=== PATIENT | female | born 1990 | race Caucasian/White ===

== ENCOUNTER → 2017-09-24 20:50 | Outpatient (REF) | payer OTHER, SELFPAY | LOC: LAB 20:50 ==

== ENCOUNTER → 2018-02-15 14:19 | Outpatient (CLI) | payer OTHER, SELFPAY ==
--- NOTE | 2018-02-15 14:21 | US_ITS ---
US OB transvaginal HISTORY: ITS.REASON: US OB Dates ORDERING PHYSICIAN: Mark Moy MD PATIENT AGE: 27 years COMPARISON: None FINDINGS: An intrauterine gestational sac is present with a pole with a crown-rump length of 1.34cm correlating to gestational age of 7w5d. heart tones are present with an FHR of 178 bpm's. Yolk sac is noted. The amnion and chorion have not yet fused. Adnexa: Unremarkable. IMPRESSION: Live intrauterine gestation at 7 weeks 5 days as described above. Estimated due date by ultrasound is 09/29/2018
== END ==
PROVIDERS: Family Provider Family Medicine; PCP Physician Assistant; Visit Provider Nurse Practitioner Obstetrics & Gynecology
DX: O26.841 Uterine size-date discrepancy, first trimester (principal)
CPT/HCPCS: 76817

== ENCOUNTER → 2019-01-30 14:10 | Outpatient (CLI) | payer OTHER, SELFPAY ==
[2019-01-30 14:37] LABS: Basophils % 0.4 % (0.1-2.0); Eosinophils # 0.1 K/mm3 (0.0-0.4); Eosinophils % 1.6 % (0.1-12.0); Hematocrit 38.1 % (37.0-47.0); Hemoglobin 12.3 g/dL (12.2-16.2); Lymphocytes % 30.3 % (10-50); Mean Corpuscular HGB Conc 32.2 g/dL (31.8-35.4); Mean Corpuscular Volume 96.1 fl (81-99); Mean Platelet Volume 7.3 fl (7.4-10.4); Monocytes # 0.4 K/mm3 (0.1-1.0); Monocytes % 6.3 % (1.7-9.3); Neutrophils % 61.4 % (37.0-80.0); Platelet Count 297 K/mm3 (142-424); Red Blood Count 3.97 M/mm3 (4.20-5.40); White Blood Count 6.5 K/mm3 (4.8-10.8)
[2019-01-30 14:58] LABS: Alanine Aminotransferase 18 U/L (12-78); Albumin Level 3.7 gm/dL (3.4-5.0); Albumin/Globulin Ratio 1.3 (1.1-1.8); Alkaline Phosphatase 42 U/L (46-116); Anion Gap 9.8 mEq/L (5-15); Aspartate Amino Transferase 16 U/L (15-37); Bilirubin,Total 0.3 mg/dL (0.2-1.0); Blood Urea Nitrogen 21 mg/dL (7-18); Calcium 8.8 mg/dL (8.5-10.1); Carbon Dioxide 26 mmol/L (21.0-32.0); Chloride 105 mmol/L (98-107); Chol/HDL Ratio 1.7 (1-3.5); Cholesterol 131 mg/dL (140-200); Creatinine,Serum 0.75 mg/dL (0.55-1.02); Estimated Glomerular Filt Rate 91 ml/min (>60); GFR (African American) 110 ML/MIN (>60); Globulin 2.9 gm/dl (1.3-3.2); Glucose 73 mg/dL (74-106); HDL Cholesterol 77 mg/dL (29-89); LDL Cholesterol 48 mg/dL (0-130); Potassium 3.8 mmoL/L (3.5-5.1); Sodium 137 mmol/L (136-145); T4 (Thyroxine) 7.1 ug/dl (4.7-13.3); Thyroid Stimulating Hormone 1.83 uIU/ml (0.358-3.740); Total Protein,Serum 6.6 gm/dL (6.4-8.2); Triglycerides 30 mg/dL (30-200); VLDL Cholesterol 6 mg/dL (0-40)
[2019-01-30 17:28] LABS: HCG Qualitative, Serum Negative (Negative)
== END ==
PROVIDERS: Visit Provider Physician Assistant
DX: R11.0 Nausea (principal)
CPT/HCPCS: 80053; 80061; 84436; 84443; 84703; 85025

== ENCOUNTER → 2019-02-07 13:38 | Outpatient (CLI) | payer OTHER, SELFPAY ==
--- NOTE | 2019-02-07 13:40 | US_ITS ---
PROCEDURE: US TRANSVAGINAL CLINICAL INDICATION: RLQ Pain COMPARISON: OBTV US OB transvaginal from 02/15/2018 TECHNIQUE: FINDINGS: UTERUS: The uterus measures 9.4 x 4.3 x 6 cm. Combined endometrial thickness is 9 mm. The vessels within the myometrium are somewhat prominent which is of questionable clinical significance. RIGHT OVARY: Measures 4 x 2 x 3 cm. There is a 2 cm right ovarian cyst LEFT OVARY: Measures 3 x 1.5 x 3 cm with a 1 cm cyst OTHER FINDINGS: Small amount of fluid in the cul-de-sac. There is bilateral ovarian blood flow IMPRESSION: 2 cm right ovarian cyst with small amount of fluid in the cul-de-sac otherwise negative pelvic ultrasound Dictated by: Bill Miguel MD 02/07/2019 17:11 Signed by: <Electronically signed by Bill Miguel MD in [facility]> 02/07/2019 17:11
== END ==
PROVIDERS: PCP Physician Assistant; Visit Provider Physician Assistant
DX: R10.31 Right lower quadrant pain (principal)
CPT/HCPCS: 76830

== ENCOUNTER → 2019-03-24 17:14 | Outpatient (CLI) | payer OTHER, SELFPAY ==
[2019-03-24 17:42] LABS: Basophils # 0.1 K/mm3 (0-0.2); Basophils % 0.7 % (0.1-2.0); Eosinophils # 0.1 K/mm3 (0.0-0.4); Eosinophils % 1.4 % (0.1-12.0); Hematocrit 39.9 % (37.0-47.0); Hemoglobin 12.1 g/dL (12.2-16.2); Lymphocytes # 2.8 K/mm3 (0.7-4.5); Mean Corpuscular HGB Conc 30.3 g/dL (31.8-35.4); Mean Corpuscular Hemoglobin 29.3 pg (27.0-31.2); Mean Corpuscular Volume 96.6 fl (81-99); Mean Platelet Volume 7.9 fl (7.4-10.4); Monocytes # 0.6 K/mm3 (0.1-1.0); Monocytes % 6.9 % (1.7-9.3); Neutrophils # 5.2 K/mm3 (1.8-7.8); Platelet Count 332 K/mm3 (142-424); Red Blood Count 4.13 M/mm3 (4.20-5.40); Red Cell Distribution Width 12.8 % (11.5-17.5); White Blood Count 8.8 K/mm3 (4.8-10.8)
[2019-03-24 18:36] LABS: Alanine Aminotransferase 16 U/L (12-78); Albumin Level 3.6 gm/dL (3.4-5.0); Albumin/Globulin Ratio 1.1 (1.1-1.8); Alkaline Phosphatase 43 U/L (46-116); Amylase 47 U/L (25-115); Anion Gap 14.9 mEq/L (5-15); Aspartate Amino Transferase 15 U/L (15-37); Bilirubin,Total 0.4 mg/dL (0.2-1.0); Blood Urea Nitrogen 23 mg/dL (7-18); Calcium 8.7 mg/dL (8.5-10.1); Carbon Dioxide 27 mmol/L (21.0-32.0); Chloride 103 mmol/L (98-107); Creatinine,Serum 0.94 mg/dL (0.55-1.02); Estimated Glomerular Filt Rate 70 ml/min (>60); GFR (African American) 85 ML/MIN (>60); Globulin 3.2 gm/dl (1.3-3.2); Glucose 93 mg/dL (74-106); Lipase 163 u/L (73-393); Potassium 3.9 mmoL/L (3.5-5.1); Sodium 141 mmol/L (136-145); Total Protein,Serum 6.8 gm/dL (6.4-8.2)
== END ==
PROVIDERS: Visit Provider Physician Assistant
DX: R10.13 Epigastric pain (principal)
CPT/HCPCS: 80053; 82150; 83690; 85025

== ENCOUNTER → 2019-03-27 08:17 | Outpatient (CLI) | payer OTHER, SELFPAY ==
--- NOTE | 2019-03-27 08:19 | US_ITS ---
PROCEDURE: US ABDOMEN LIMITED CLINICAL INDICATION: Epigastric pain, nausea Nausea, upper abdominal pain COMPARISON: No exams were available for comparison FINDINGS: PANCREAS: Unremarkable. No obvious mass or abnormal fluid collection. No ductal dilatation LIVER: No focal liver lesions demonstrated. Homogeneous echogenicity. No intrahepatic biliary ductal dilatation evident. There is appropriate direction of blood flow within a non dilated portal vein RIGHT KIDNEY: Unremarkable. Normal size and echogenicity. No hydronephrosis GALLBLADDER: No gallstones, gallbladder wall thickening, pericholecystic fluid, or biliary dilatation. IMPRESSION: Unremarkable limited abdominal ultrasound as detailed above disc Dictated by: Bill Miguel MD 03/27/2019 18:18 Electronically signed by Bill Miguel MD in [facility] 03/27/2019 18:18
== END ==
PROVIDERS: PCP Physician Assistant; Visit Provider Physician Assistant
DX: R10.13 Epigastric pain (principal)
CPT/HCPCS: 76705

== ENCOUNTER → 2019-04-25 15:23 | Outpatient (CLI) | payer OTHER, SELFPAY ==
[2019-04-25 18:52] LABS: Hemoglobin A1C 5.5 % (0.0-7.0)
== END ==
PROVIDERS: Visit Provider Nurse Practitioner Family
DX: R81 Glycosuria (principal)
CPT/HCPCS: 36415; 83036

== ENCOUNTER → 2019-06-27 11:19 | Outpatient (CLI) | payer MEDICAID, SELFPAY ==
[2019-06-27 11:40] LABS: Basophils % 0.8 % (0.1-2.0); Eosinophils # 0.1 K/mm3 (0.0-0.4); Eosinophils % 1.6 % (0.1-12.0); Hematocrit 41.6 % (37.0-47.0); Hemoglobin 13.3 g/dL (12.2-16.2); Lymphocytes # 2.4 K/mm3 (0.7-4.5); Lymphocytes % 44.2 % (10-50); Mean Corpuscular Hemoglobin 29.7 pg (27.0-31.2); Mean Corpuscular Volume 92.7 fl (81-99); Mean Platelet Volume 7.3 fl (7.4-10.4); Monocytes # 0.4 K/mm3 (0.1-1.0); Monocytes % 8.1 % (1.7-9.3); Neutrophils # 2.4 K/mm3 (1.8-7.8); Neutrophils % 45.4 % (37.0-80.0); Platelet Count 332 K/mm3 (142-424); Red Blood Count 4.48 M/mm3 (4.20-5.40); Red Cell Distribution Width 12.9 % (11.5-17.5); White Blood Count 5.4 K/mm3 (4.8-10.8)
[2019-06-28 11:05] LABS: HIV Screen 4th Generation wRfx Non Reactive (Non Reactive); Hepatitis B Surface Antigen Negative (Negative); Hepatitis C Antibody <0.1 s/co ratio (0.0-0.9); Rubella Antibodies, IgG 1.55 index (Immune >0.99)
[2019-06-28 12:22] LABS: Rapid Plasma Reagin Ab Titer Non Reactive (NonRea<1:1)
== END ==
PROVIDERS: Visit Provider Nurse Practitioner Obstetrics & Gynecology
DX: Z34.90 Encounter for supervision of normal pregnancy, unspecified, unspecified trimester (principal)
CPT/HCPCS: 36415; 85025; 86592; 86703; 86762; 86850; 87340; 87380; G0432

== ENCOUNTER → 2019-07-03 13:45 | Outpatient (CLI) | payer MEDICAID, SELFPAY ==
--- NOTE | 2019-07-03 13:45 | US_ITS ---
PROCEDURE: US OB TRANSVAGINAL CLINICAL INDICATION: US OB Dates COMPARISON: OBTV US OB transvaginal from 02/15/2018 FINDINGS: An intrauterine gestational sac is present with a yolk sac identified 0.35 centimeters with no pole. An early intrauterine gestation is suspected. Follow-up will be required in attempt to confirm viability. Right ovary measures 4.7 x 2.9 x 3.6 centimeters and contains a 1.8 by 2.1 by 2.1 centimeter cyst possibly corpus luteum cyst. Left ovary measures 3.5 x 1.9 x 1.6 centimeters and has a normal appearance. No abnormal adnexal mass is apparent. By report gestational age based on last menstrual period would be 6 weeks 1 day and ROBBIE would be 02/25/2020. IMPRESSION: An intrauterine gestational sac with yolk sac but no pole is identified suggesting early intrauterine gestation. Follow-up and correlation with beta hCG values is recommended. Dictated by: Rainer Reese 07/03/2019 16:22 Electronically signed by Rainer Reese in [facility] 07/03/2019 16:22
== END ==
PROVIDERS: PCP Physician Assistant; Visit Provider Nurse Practitioner Obstetrics & Gynecology
DX: O26.841 Uterine size-date discrepancy, first trimester (principal)
CPT/HCPCS: 76817

== ENCOUNTER → 2019-07-11 13:05 | Outpatient (CLI) | payer MEDICAID, SELFPAY ==
--- NOTE | 2019-07-11 13:05 | US_ITS ---
PROCEDURE: US OB <= 14 WEEKS FETUS CLINICAL INDICATION: for dates over 12 weeks COMPARISON: US OB TRANSVAGINAL from 07/03/2019 FINDINGS: An intrauterine gestational sac is present with a pole with a crown-rump length of 0.49cm correlating to gestational age of 6weeks 2days. heart tones are present with an FHR of 124bpm. Yolk sac is noted. There is a 2 cm right corpus luteum cyst IMPRESSION: Live IUP at 6 weeks 2 days Estimated due date by Ultrasound is 03/03/2020 Dictated by: Bill Miguel MD 07/11/2019 18:09 Electronically signed by Bill Miguel MD in [facility] 07/11/2019 18:09
== END ==
PROVIDERS: PCP Physician Assistant; Visit Provider Nurse Practitioner Obstetrics & Gynecology
DX: Z34.90 Encounter for supervision of normal pregnancy, unspecified, unspecified trimester (principal)
CPT/HCPCS: 76801

== ENCOUNTER → 2019-10-08 12:41 | Outpatient (CLI) | payer MEDICAID, SELFPAY ==
[2019-10-10 02:44] LABS: AFP Value 61.2 ng/mL (.); DIA MoM 0.71 (.); DIA Value 130.16 pg/mL (.); DSR (Second Trimester) 1 IN 10000 (.); Insulin Dep Diabetes No (.); Maternal Age At EDD 31.3 yr (.); OSBR Risk 1 IN 6301 (.); Results Report (.); hCG MoM 0.85 (.); uE3 MoM 1.31 (.)
[2019-10-10 09:24] LABS: Gestat. Age Based On EDD (.)
== END ==
PROVIDERS: Visit Provider Nurse Practitioner Obstetrics & Gynecology
DX: Z34.90 Encounter for supervision of normal pregnancy, unspecified, unspecified trimester (principal)
CPT/HCPCS: 36415; 82106

== ENCOUNTER → 2019-10-16 12:59 | Outpatient (CLI) | payer MEDICAID, SELFPAY ==
--- NOTE | 2019-10-16 12:59 | US_ITS ---
PROCEDURE: US OB /MATERNAL DETAIL CLINICAL INDICATION: 20 wk gestation of Anatomy exam COMPARISON: US OB <= 14 WEEKS FETUS from 07/11/2019 FINDINGS: There is a single live fetus present in breech presentation. The cervix is closed and measures 4 cm transabdominal. The placenta is posterior and grade 1. There is average appearing amount of amniotic fluid. The Complete survey performed and was unremarkable on the submitted images as in PACS. No discrete anomalies identified on survey imaging by technologist. Active fetus. Three-vessel cord with satisfactory umbilical cord insertion. 4- chamber heart noted. Survey of brain & ventricles Unremarkable. Face and neck survey unremarkable. Diaphragm and chest views unremarkable. Abdomen: Both kidneys noted and unremarkable. Stomach noted and satisfactory. Spine: Survey of the spine satisfactory with no anomalies identified nor imaged. Both arms and legs noted. Amniotic Fluid: Adequate. Maternal adnexa: No significant findings. Measurements: Average ultrasound age 20weeks 3days. Gestational Age 20 weeks 1 day Estimated due date by ultrasound age 0903/01/2020. Estimated weight 352g BPD = 20weeks 5days OFD = 20 weeks 5 days HC = 19weeks 6days AC = 20weeks 5days FL = 20weeks 2days Growth Percentile= 61% Heart Rate = 149bpm Cerebellum = 20weeks 5days Humerus = 20weeks 5days HC/AC is 1.11 CI is 0.79 FL/BPD is 0.68 FL/AC is 0.21 IMPRESSION: The live intrauterine gestation in breech presentation with an average ultrasound age 20 weeks 3 days. All parameters correlate with no obvious anomalies. Please see above for detail Dictated by: Bill Miguel MD 10/16/2019 14:45 Electronically signed by Bill Miguel MD in [facility] 10/16/2019 14:45
== END ==
PROVIDERS: PCP Physician Assistant; Visit Provider Nurse Practitioner Obstetrics & Gynecology
DX: Z34.90 Encounter for supervision of normal pregnancy, unspecified, unspecified trimester (principal)
CPT/HCPCS: 76811

== ENCOUNTER → 2019-11-18 08:38 | Outpatient (CLI) | payer MEDICAID, SELFPAY ==
--- NOTE | 2019-11-18 08:39 | US_ITS ---
PROCEDURE: US GALLBLADDER CLINICAL INDICATION: pt. is and is having RUQ pain COMPARISON: No exams were available for comparison FINDINGS: Pancreas: Unremarkable/ Liver: Unremarkable. There is appropriate direction of blood flow within a non dilated portal vein. Right kidney: The right kidney measures 10.6 x 5 point by 5.2 cm and appears sonographically normal. Gallbladder: The gallbladder is normal in size. There is a tiny amount of biliary sludge layering along the dependent wall but no definite gallstones are seen. The common bile duct is normal in caliber. There is no gallbladder wall thickening. IMPRESSION: Small amount of biliary sludge otherwise unremarkable study Dictated by: Dr. Buddy Oscar MD 11/18/2019 09:[address] Buddy Oscar MD in [place] 11/18/2019 09:20
== END ==
PROVIDERS: PCP Physician Assistant; Visit Provider Nurse Practitioner Obstetrics & Gynecology
DX: R10.11 Right upper quadrant pain (principal); Z34.90 Encounter for supervision of normal pregnancy, unspecified, unspecified trimester
CPT/HCPCS: 76705

== ENCOUNTER → 2019-12-05 08:12 | Outpatient (CLI) | payer MEDICAID, SELFPAY ==
[2019-12-05 09:42] LABS: Glucose,Fasting 87 mg/dl (74-100)
[2019-12-05 10:20] LABS: Glucose 1 Hour 133 mg/dL (74-100)
== END ==
PROVIDERS: Visit Provider Nurse Practitioner Obstetrics & Gynecology
DX: Z34.90 Encounter for supervision of normal pregnancy, unspecified, unspecified trimester (principal)
CPT/HCPCS: 36415; 82951

== ENCOUNTER → 2020-01-21 12:02 | Outpatient (CLI) | payer MEDICAID, SELFPAY ==
--- NOTE | 2020-01-21 12:06 | XR_ITS ---
PROCEDURE: XR ANKLE WT BEARING RT MIN 3V CLINICAL INDICATION: pain, injury Swelling and bruising COMPARISON: No exams were available for comparison FINDINGS: No fracture or dislocation. No lytic or blastic change. There is an accessory center of ossification at the tip of the lateral malleolus. A small anchor screw is present at the medial aspect of the midfoot. There is mild soft tissue swelling laterally. IMPRESSION: No acute findings. Dictated b Bill Miguel MD 01/21/2020 13:37 Bill Miguel MD in [facility] 01/21/2020 13:37
== END ==
PROVIDERS: PCP Physician Assistant; Visit Provider Podiatrist
DX: M25.571 Pain in right ankle and joints of right foot (principal)
CPT/HCPCS: 73610

== ENCOUNTER → 2020-02-04 17:11 | Outpatient (CLI) | payer MEDICAID, SELFPAY | PROVIDERS: Visit Provider Nurse Practitioner Obstetrics & Gynecology | DX: Z34.90 Encounter for supervision of normal pregnancy, unspecified, unspecified trimester (principal) | CPT/HCPCS: 86403 ==

== ENCOUNTER 2020-02-26 13:59 | Inpatient (IN) | payer MEDICAID, SELFPAY ==
[2020-02-26] VITALS (8 sets, daily range): BP systolic 98–133; BP diastolic 62–91; PULSE 70–89; RESP 12–20; TEMP 36.4–36.6; O2SAT 97–100; BMI 30.2
[2020-02-26 12:12] LABS: Microscopic, Urine URINE MICROSCOPIC (MICROSCOPIC)
[2020-02-26 12:13] LABS: Appearance,Urine CLEAR (Clear); Bilirubin,Urine Negative (Negative); Blood, Urine Negative (Negative); Color,Urine YELLOW (Yellow); Glucose,Urine (UA) Negative (Negative); Ketones,Urine Negative (Negative); Leukocyte Esterase,Urine Negative (Negative); Nitrate,Urine Negative (Negative); PH,Urine 6.5 (5.0-8.5); Protein,Urine Negative (Negative); Urobilinogen,Urine 0.2 EU/dl (0.2)
[2020-02-26 12:21] LABS: Bacteria,Urine 2+ /lpf
[2020-02-26 12:26] LABS: Amphetamine/Metha Screen,Urine Negative ng/ml (<1000); Barbiturates Screen,Urine Negative ng/ml (<200)
[2020-02-26 12:27] LABS: Benzodiazepines Screen,Urine Negative ng/ml (<200)
[2020-02-26 12:28] LABS: Cannabinoid Screen,Urine Negative ng/ml (<50); Cocaine Screen,Urine Negative ng/ml (<300)
[2020-02-26 12:29] LABS: Methadone Screen,Urine Negative ng/ml (<300)
[2020-02-26 12:30] LABS: Opiate Screen,Urine Negative ng/ml (<300); Phencyclidine Screen,Urine Negative ng/ml (<25)
[2020-02-26 12:48] LABS: Fetal Membrane Rupture (Rapid) Negative (Negative)
[2020-02-26 14:10] LABS: Basophils % 0.3 % (0.1-2.0); Eosinophils # 0.2 K/mm3 (0.0-0.4); Eosinophils % 1.4 % (0.1-12.0); Hematocrit 38.7 % (37.0-47.0); Hemoglobin 12.9 g/dL (12.2-16.2); Lymphocytes # 2.2 K/mm3 (0.7-4.5); Lymphocytes % 18.6 % (10-50); Mean Corpuscular HGB Conc 33.4 g/dL (31.8-35.4); Mean Corpuscular Hemoglobin 31.9 pg (27.0-31.2); Mean Corpuscular Volume 95.6 fl (81-99); Monocytes # 0.8 K/mm3 (0.1-1.0); Monocytes % 6.9 % (1.7-9.3); Neutrophils # 8.6 K/mm3 (1.8-7.8); Neutrophils % 72.8 % (37.0-80.0); Platelet Count 290 K/mm3 (142-424); Red Blood Count 4.05 M/mm3 (4.20-5.40); Red Cell Distribution Width 12.3 % (11.5-17.5); White Blood Count 11.9 K/mm3 (4.8-10.8)
[2020-02-26 14:18] LABS: Chloride 108 mmol/L (98-107); Potassium 3.9 mmoL/L (3.5-5.1); Sodium 136 mmol/L (136-145)
[2020-02-26 14:21] LABS: Blood Urea Nitrogen 12 mg/dl (7-17); Creatinine Clearance Estimated 200 mL/min (50-200); Estimated Glomerular Filt Rate 144 ml/min (>60); GFR (African American) 174 ML/MIN (>60)
[2020-02-26 14:22] LABS: Anion Gap 10.9 mEq/L (5-15); Calcium 8.8 mg/dl (8.4-10.2); Carbon Dioxide 21 mmol/L (22.0-30.0); Glucose 87 mg/dl (74-100)
[2020-02-26 14:47] LABS: Coronavirus 19 IgG Antibody Negative (Negative); Coronavirus 19 IgM Antibody Negative (Negative)
--- NOTE | 2020-02-26 16:17 | P.PN_ITS ---
[facility] Anesthesia Checklist - Structural Data Admitted From: Inpatient Planned Operative Procedure/s: c/section Consent for Planned Operative Procedure(s) Verified: Yes - Airway Assessment C-Spine Mobility Assessed: Yes TMJ Mobility Assessed: Yes Dentition: Good Dentition - Neurological Assessment Level of Consciousness: Awake, Alert, Appropriate - Anesthesia Plan Anesthesia Risk discussed: Yes Anesthesia Plan: Verified ASA Class: II Anesthesia Type: Spinal [facility] History I have reviewed the patient's past medical history: Yes Medical History: Reports:: Migraine *Have you ever received a pneumonia vaccine?: No *Have you received a flu vaccine this season?: No Other Medical History: Reports: Other Anesthesia experience/problems:: none Other Surgeries: Yes: , EGD, Other Amputation: No Fractures: No - *Social History Smoking Status: Never smoker Alcohol Intake: current Alcohol Intake Frequency:: holidays/special occasions only Substance Use Type: denies use *Occupational Status:: employed Housing: house Household Members: family *Travel in the last 8 weeks: None Family Hx:: Diabetes, Cancer 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
--- NOTE | 2020-02-26 16:18 | P.PN_ITS ---
[facility] [place] Anesthesia Record Part I Intake, IV Amount: 1,500 Estimated blood loss (mL): 700 Urine output (mL): 450 Blood Pressure: 98/71 SaO2: 97 Pulse Rate: 70 Respiratory Rate: 12 Temperature: 97.6 F Patient is:: Awake, Stable Stable to PACU at:: 16:15
--- NOTE | 2020-02-26 17:06 | PC.NURSE ---
1630-pt eating ice chips w/out difficulty 1644-detailed report called to Shelly,RN 1648-pt transported to OB room 278 via hospital bed w/michelle rails up and left in care of JUANA Bravo w/bed locked in lowest position, vss, family at bedside, pt stable
--- NOTE | 2020-02-26 17:13 | SUR.OPER ---
1535-viable infant male born at this time
--- NOTE | 2020-02-26 17:22 | HMH.OPNOTE ---
Date of procedure: 02/26/20 Pre-op Diagnosis:: 1. 39 2/7 wks 2. Previous C Section Post-op Diagnosis:: Same Procedure performed:: Repeat Low Transverse C Section Surgeon:: Kelli Woodard MD Well Servicing Rig Operator(s):: Yun Duenas CAREER SERVICES ASSISTANT:: Odin Calhoun Anesthesia: spinal Estimated blood loss (mL): 700 Operative findings:: Grossly normal uterus, fallopian tubes and ovaries Vigorous liveborn male infant, vertex presentation Operative note:: The patient was taken to the OR and spinal was administered without difficulty. She was prepped and draped in normal sterile fashion. A pfannenstiel skin incision was made with the scalpel and carried down to the fascia. The fascia was incised in the midline and sharply dissected off the rectus muscles. The muscles were in the midline and the peritoneum was entered sharply and extended bluntly. The Vignesh-O self retaining retractor was placed in the abdomen and a bladder flap was created. The uterus was incised in the lower uterine segment in a transverse fashion and extended bluntly. Amniotomy was performed and clear fluid noted. The infant was delivered in controlled fashion, without complication or shoulder dystocia. The infant was vigorous at and handed to awaiting pediatricians for evaluation after cord clamped and cut. Cord blood was collected and a cord segment was preserved. The placenta was manually extracted and noted to be intact. The uterus was repaired with 0-vicryl in a running/locked fashion. The peritoneum was closed with 2-0 vicryl in a running fashion. The fascia was closed with #1 vicryl in a running fashion. The subcutaneous fat was closed with 2-0 vicryl in an interrupted fashion. The skin was closed with santana. The patient tolerated the procedure well. Sponge, lap, needle and instrument counts were correct x 2. She was taken to PACU awake and in stable condition. Condition: stable Disposition: PACU Complications:: none
[2020-02-26 17:24] LABS: Microscopic,Cath URINE MICROSCOPIC (MICROSCOPIC)
[2020-02-26 17:25] LABS: Appearance,Urine/Cath CLEAR (Clear); Bilirubin,Cath Negative (Negative); Blood, Urine/Cath Negative (Negative); Color,Urine/Cath YELLOW (Yellow); Glucose,Urine/Cath (UA) Negative (Negative); Ketones,Urine/Cath Negative (Negative); Leukocyte Esterase,Cath Negative (Negative); Nitrate,Cath Negative (Negative); PH,Urine/Cath 7.5 (5.0-8.5); Protein,Urine/Cath Negative (Negative); Specific Gravity, Urine/Cath <= 1.005 (1.005-1.030); Urobilinogen,Cath 0.2 EU/dl (0.2)
[2020-02-26 17:33] LABS: Renal Epithelial Cells,Ur/Cath Occasional #/lpf (0); Squamous Epithelial Ur./Cath Occasional #/hpf (0-5)
[2020-02-27 06:56] LABS: Hematocrit 33.6 % (37.0-47.0); Hemoglobin 11.7 g/dL (12.2-16.2)
[2020-02-27 08:00] VITALS: BP 111/62; PULSE 77; RESP 20; TEMP 36.8; O2SAT 98
--- NOTE | 2020-02-27 08:52 | HMH.ACPN2 ---
Internal Medicine - PN: Subj *Date: 02/27/20 *Time: 08:52 Interval history: She is doing well this morning. She is eating and drinking and ambulating. She is bottlefeeding. Her lochia is normal. Her pain is well controlled. Her incision is clean and dry. Exam Vital signs and Labs for Last 24 Hours: Temp Pulse Resp BP Pulse Ox 98.3 F 77 20 111/62 98 02/27/20 08:00 02/27/20 08:00 02/27/20 08:00 02/27/20 08:00 02/27/20 08:00 Laboratory Results - last 24 hr 02/26/20 11:56: Urine Color Yellow, Urine Appearance Clear, Urine pH 6.5, Ur Specific [place] 1.020, Urine Protein Negative, Urine Glucose (UA) Negative, Urine Ketones Negative, Urine Blood Negative, Urine Nitrate Negative, Urine Bilirubin Negative, Urine Urobilinogen 0.2, Ur Leukocyte Esterase Negative, Urine RBC 3-5, Urine WBC 5-10, Ur Squamous Epith Cells 10-20, Urine Bacteria 2+ 02/26/20 11:56: Urine Opiates Screen Negative, Urine Methadone Screen Negative, Ur Barbituates Screen Negative, Ur Phencyclidine Scrn Negative, Ur Amphetamines Screen Negative, U Benzodiazepines Scrn Negative, Urine Cocaine Screen Negative, U Marijuana (THC) Screen Negative 02/26/20 12:10: Membrane Rupture Negative 02/26/20 13:59: WBC 11.9 H, RBC 4.05 L, Hgb 12.9, Hct 38.7, MCV 95.6, MCH 31.9 H, MCHC 33.4, RDW 12.3, Plt Count 290, MPV 8.0, Neut % (Auto) 72.8, Lymph % (Auto) 18.6, [place] % (Auto) 6.9, Eos % (Auto) 1.4, Baso % (Auto) 0.3, Neut # (Auto) 8.6 H, Lymph # (Auto) 2.2, [place] # (Auto) 0.8, Eos # (Auto) 0.2, Baso # (Auto) 0.0 02/26/20 13:59: SARS-CoV-2 IgG Ab (Rapid) Negative, SARS-CoV-2 IgM Ab (Rapid) Negative 02/26/20 13:59: Blood Type B Positive, Antibody Screen Negative 02/26/20 13:59: Sodium 136, Potassium 3.9, Chloride 108 H, Carbon Dioxide 21 L, Anion Gap 10.9, BUN 12, Creatinine 0.50 L, Estimated Creat Clear 200, Estimated GFR 144, Est GFR ( Amer) 174, Glucose 87, Calcium 8.8 02/26/20 15:25: Urine Color Yellow, Urine Appearance Clear, Urine pH 7.5, Ur Specific [place] <= 1.005, Urine Protein Negative, Urine Glucose (UA) Negative, Urine Ketones Negative, Urine Blood Negative, Urine Nitrate Negative, Urine Bilirubin Negative, Urine Urobilinogen 0.2, Ur Leukocyte Esterase Negative, Urine RBC None, Urine WBC 3-5, Ur Squamous Epith Cells Occasional, Ur Renal Epithelial Cell Occasional, Urine Bacteria None 02/27/20 06:35: Hgb 11.7 L, Hct 33.6 L I & O for Last 24 hours: Intake & Output 02/24/20 02/25/20 02/26/20 02/27/20 11:59 11:59 11:59 11:59 Intake Total 1675 / 1675 Output Total 1000 / 1000 Balance 675 / 675 Weight 171 lb 171 lb Microbiology Reports for the Last 24 Hours: Microbiology 02/26/20 11:56 Urine,Clean Catch Urine Culture - Preliminary - Constitutional no acute distress - *Routine HEENT Exam Head: Present: normocephalic Eye: Present: EOMI, PERRL ENT: Present: mucous membranes moist Assessment and Plan (1) Previous section Current visit: Yes Status: Acute Category: Surgical Code(s): Z98.891 - History of uterine scar from previous surgery (2) delivery delivered Current visit: Yes Status: Acute Category: Medical Code(s): O82 - Encounter for delivery without indication - Assessment and plan all Dx Assessment and Plan for all problems:: She is doing well this morning. We will plan to send her home in 48 hours.
--- NOTE | 2020-02-27 08:56 | HMH.OBAPHP ---
OB - H&P: HPI Antepartum - History of Present Illness Chief complaint: Contractions, previous section, abnormal heart rate tracing History of present illness: She is a 29-year-old 3 para 1 aborta 1 who is had a previous section. She was scheduled next week for a repeat section and came in in active labor. Her cervix had changed and she was having a few mild decelerations. Since she was in active labor she was taken for a repeat lower segment transverse section. - History of Present Criteria for establishing EDC:: LMP confirmed by 1st trimester US care: good care Ultrasounds: normal 1st trimester US, normal mid trimester US Obstetrical complications: previous Medical complications: none - Labs Blood type: B (+) positive Rubella: immune RPR/VDRL: nonreactive GBS status: negative HBsAG: negative [facility] History I have reviewed the patient's past medical history: Yes Medical History: Reports:: Migraine *Have you ever received a pneumonia vaccine?: No *Have you received a flu vaccine this season?: No Other Medical History: Reports: Other Anesthesia experience/problems:: none Other Surgeries: Yes: , EGD, Other Amputation: No Fractures: No - *Social History Smoking Status: Never smoker Alcohol Intake: current Alcohol Intake Frequency:: holidays/special occasions only Substance Use Type: denies use *Occupational Status:: employed Housing: house Household Members: family *Travel in the last 8 weeks: None Family Hx:: Diabetes, Cancer 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 Para: 1 Review of Systems - Review of Systems Review of systems:: pertinent systems reviewed and negative unless documented below Meds Home Medications Medication Instructions Recorded Confirmed Type vitamin no.138-folic acid 1 tab PO DAILY 06/27/19 02/26/20 History 400 mcg-dha 25 mg chewable tablet RX: Ferrous Sulfate 325 mg PO DAILY 02/26/20 02/26/20 History RX: Promethazine HCl 12.5 mg PO Q6HP PRN 02/26/20 02/26/20 History Allergies Allergy/AdvReac Type Severity Reaction Status Date / Time apple Allergy Intermediate vomiting Verified 02/24/20 10:26 raspberry Allergy Intermediate swelling Verified 02/24/20 10:26 of tongue lips and throat Penicillins Allergy Unknown Rash Verified 02/24/20 10:26 OB - H&P: Exam - Physical Exam Vital signs: Temp Pulse Resp BP Pulse Ox 98.3 F 77 20 111/62 98 02/27/20 08:00 02/27/20 08:00 02/27/20 08:00 02/27/20 08:00 02/27/20 08:00 - Constitutional no acute distress - Routine HEENT Exam Head: Present: normocephalic Eye: Present: EOMI, PERRL ENT: Present: mucous membranes moist - Routine Neck Exam Present: supple, full ROM - Routine Respiratory Exam Absent: accessory muscle use (good air entry bilaterally), respiratory distress, wheezes, crackles - Routine Cardiovascular Exam Present: RRR. Absent: murmur - Routine Abdominal Exam Present: soft, normoactive bowel sounds. Absent: tenderness, distended, guarding - Routine Rectal Exam Patient deferred: visual exam, digital exam - Routine Exam Patient deferred: external exam, groin exam, perineal exam - Routine Extremities Exam Present: full ROM. Absent: cyanosis, edema - Routine Skin Exam Present: intact. Absent: cyanosis - Routine Neurological Exam Present: alert, oriented X3 - Routine Psychiatric Exam Present: normal affect OB - Results - Labs Labs: Short CBC 02/26/20 02/27/20 Range/Units 13:59 06:35 WBC 11.9 H (4.8-10.8) K/mm3 Hgb 12.9 11.7 L (12.2-16.2) g/dL Hct 38.7 33.6 L (37.0-47.0) % Plt Count 290 (142-424) K/mm3 BMP 02/26/20 13:59 Sodium 136 Potassium 3.9 Chloride 108 H Carbon Dioxide 21 L BUN 12 Creatinine 0.50 L Glucose 87 Calcium 8.8 Urine 02/26/20 02/26/20 Range/Units 11:56 15:25 Urine Color Yellow
--- NOTE | 2020-02-27 11:25 | P.CONPHA_ITS ---
[facility] Pharmacy VTE Monitoring - Patient Demographics Admission date: 02/26/20 Report Date: 02/27/20 Time: 11:26 Allergies/Adverse Reactions: Patient Allergies apple Allergy (Intermediate, Verified 02/24/20 10:26) vomiting raspberry Allergy (Intermediate, Verified 02/24/20 10:26) swelling of tongue lips and throat Penicillins Allergy (Unknown, Verified 02/24/20 10:26) Rash Height: 1.6 m Weight: 77.564 kg Patient Problems: Current Active Problems Previous section (Acute) delivery delivered (Acute) - VTE Risk Labs: VTE Related Lab Results Hgb 11.7 g/dL (12.2-16.2) L 02/27/20 06:35 Hct 33.6 % (37.0-47.0) L 02/27/20 06:35 Plt Count 290 K/mm3 (142-424) 02/26/20 13:59 BUN 12 mg/dl (7-17) 02/26/20 13:59 Creatinine 0.50 mg/dl (0.52-1.04) L 02/26/20 13:59 Estimated Creat Clear 200 mL/min (50-200) 02/26/20 13:59 - Prophylaxis VTE Prophylaxis Ordered?: Yes Types of VTE Prophylaxis: IPCS Thigh High Location of Applied Device: Bilateral Lower Extremeties
--- NOTE | 2020-02-28 12:00 | HMH.ACPN2 ---
Internal Medicine - PN: Subj *Date: 02/28/20 *Time: 12:00 Interval history: She is doing well today. She is eating and drinking and ambulating. She is bottlefeeding. Her lochia is normal. Her incision is clean and dry. Exam Vital signs and Labs for Last 24 Hours: Temp Pulse Resp BP Pulse Ox 98.3 F 77 20 111/62 98 02/27/20 08:00 02/27/20 08:00 02/27/20 08:00 02/27/20 08:00 02/27/20 08:00 I & O for Last 24 hours: Intake & Output 02/26/20 02/27/20 02/28/20 02/29/20 11:59 11:59 11:59 11:59 Intake Total 1675 / 1675 Output Total 1000 / 1000 Balance 675 / 675 Weight 171 lb 171 lb - Constitutional no acute distress - *Routine HEENT Exam Head: Present: normocephalic Eye: Present: EOMI, PERRL ENT: Present: mucous membranes moist Assessment and Plan (1) Previous section Current visit: Yes Status: Acute Category: Surgical Code(s): Z98.891 - History of uterine scar from previous surgery (2) delivery delivered Current visit: Yes Status: Acute Category: Medical Code(s): O82 - Encounter for delivery without indication - Assessment and plan all Dx Assessment and Plan for all problems:: She is doing well. We will plan to send her home tomorrow.
[2020-02-28 16:00] VITALS: BP 124/73; RESP 20; TEMP 36.7
[2020-02-29 08:00] VITALS: BP 122/74; PULSE 79; RESP 17; TEMP 36.7; O2SAT 100
--- NOTE | 2020-02-29 10:00 | P.DS_ITS ---
General - General Admission date:: 02/26/20 Discharge date: 02/29/20 HPI - History of Present Illness History of present illness: She is a 29-year-old 3 now para 2 aborta 1 who was scheduled for a repeat section. She was 39 weeks gestational age. She came in active labor. As a result of that she was taken for repeat lower segment transverse section. Hospital Course Hospital Course: On February 26, 2020 she underwent a repeat lower segment transverse section. She delivered a liveborn male child at 3:35 PM. The baby weighed 8 pounds 11 ounces and was 20 inches long. He had Apgars of 7 at 1 minute and 10 at 5 minutes. She has done well postoperatively and has remained afebrile with her hospitalization. She is eating and drinking and ambulating. She is bottlefeeding. Her child protective investigator is Dr. Chun. She has be positive blood, she is rubella immune and was group B streptococcus negative. She is bottlefeeding. She is discharged home to follow-up with me in approximately 2 weeks time. She will continue with her vitamins and iron. She is had her santana removed and Steri-Strips applied. She was given a prescription for Percocet 5/325 number 30 tablets. She was given the usual instructions with respect to limiting her activity, driving and sexual activity. Her condition on discharge is stable and improved. Rhogam Administration: Not Indicated Objective Vital signs: Temp Pulse Resp BP Pulse Ox 98.1 F 79 17 122/74 100 02/29/20 08:00 02/29/20 08:00 02/29/20 08:00 02/29/20 08:00 02/29/20 08:00 no acute distress - *Routine HEENT Exam Head: Present: normocephalic Eye: Present: EOMI, PERRL ENT: Present: mucous membranes moist DS: Diagnosis - Discharge Diagnosis (1) Previous section Status: Acute (2) delivery delivered Status: Acute Discharge Plan - Patient Discharge Instructions ACTIVITY: No heavy lifting DIET: continue same diet Additional Instructions: NO HEAVY LIFTING OR STRENUOUS ACTIVITY NOTHING IN VAGINA FOR 6 WEEKS NO DRIVING WHILE TAKING PAIN MEDICATION FOLLOW-UP WITH DR. VILLEDA IN 2 WEEKS Patient Instructions: Depression, Hemorrhage, DI for , DI for Pre-eclampsia, DI for Surgical Site Infection, [facility] Post Discharge Instructions, Preventing the Spread of Coronavirus Discharge Instructions - Follow up Plan Disposition: Home, Self-Custodial Medications: Home Medications Medication Instructions Recorded Confirmed Type vitamin no.138-folic acid 1 tab PO DAILY 06/27/19 02/26/20 History 400 mcg-dha 25 mg chewable tablet Ferrous Sulfate 325 mg PO DAILY 02/26/20 02/26/20 History Promethazine HCl 12.5 mg PO Q6HP PRN 02/26/20 02/26/20 History Oxycodone HCl/Acetaminophen 1 tab PO Q6H PRN #30 tablet 02/29/20 Rx [Percocet 5/325mg tablet] Prescriptions/Medication Reconciliation: New Oxycodone HCl/Acetaminophen [Percocet 5/325mg tablet] 1 tab PO Q6H PRN #30 tablet PRN Reason: Severe Pain Continued vitamin no.138-folic acid 400 mcg-dha 25 mg chewable tablet 1 tab PO DAILY Promethazine HCl 12.5 mg PO Q6HP PRN PRN Reason: Nausea Ferrous Sulfate 325 mg PO DAILY - Problem Reconciliation Problems Reviewed?: Yes
== END 2020-02-29 10:35 | disposition home or self-care (01) | DRG 788 ==
LOC: OBOUT 14:00 → OB 14:01
PROVIDERS: Admitting Provider Obstetrics & Gynecology; PCP Physician Assistant; Visit Provider Nurse Practitioner Obstetrics & Gynecology
PROC: 10D00Z1 Extraction of Products of Conception, Low, Open Approach (ICD-10-PCS; CPT 59514; principal; 2020-02-26 15:00)
DX: O34.211 Maternal care for low transverse scar from previous cesarean delivery (principal); N85.8 Other specified noninflammatory disorders of uterus; Z3A.39 39 weeks gestation of pregnancy; Z37.0 Single live birth
CPT/HCPCS: 59514; 36415; 59025; 80048; 80305; 81001; 84112; 85014; 85018; 85025; 86328; 86850; 87086; 96360; 96361; J0595

== ENCOUNTER → 2020-10-18 14:02 | Outpatient (CLI) | payer MEDICAID, SELFPAY ==
[2020-10-18 16:07] LABS: HCG,Quantitative 98125 mIU/ml (0-5.42)
== END ==
PROVIDERS: Visit Provider Obstetrics & Gynecology
DX: Z34.90 Encounter for supervision of normal pregnancy, unspecified, unspecified trimester (principal)
CPT/HCPCS: 36415; 84702

== ENCOUNTER → 2020-10-20 11:47 | Outpatient (CLI) | payer MEDICAID, SELFPAY | PROVIDERS: Visit Provider Obstetrics & Gynecology | DX: Z34.90 Encounter for supervision of normal pregnancy, unspecified, unspecified trimester (principal) | CPT/HCPCS: 36415; 84702 ==

== ENCOUNTER → 2020-10-29 14:17 | Outpatient (CLI) | payer MEDICAID, SELFPAY ==
--- NOTE | 2020-10-29 14:17 | US_ITS ---
PROCEDURE: US OB <= 14 WEEKS FETUS CLINICAL INDICATION: dates Early Ob ultrasound for dates COMPARISON: US US OB /MATERNAL DETAIL from 10/16/2019 FINDINGS: An intrauterine gestational sac is present with a pole with a crown-rump length of 1.8 cm correlating to gestational age of 8 weeks 3 days. heart tones are present with an FHR of 170 BPM. Yolk sac is noted. Unremarkable adnexa IMPRESSION: Live IUP at 8 weeks 3 days Estimated due date by Ultrasound is 06/07/2021 Dictated by: Bill Miguel MD 10/30/2020 07:13 Bill Miguel MD in [place] 10/30/2020 07:13
== END ==
PROVIDERS: PCP Physician Assistant; Visit Provider Obstetrics & Gynecology
DX: Z34.90 Encounter for supervision of normal pregnancy, unspecified, unspecified trimester (principal)
CPT/HCPCS: 76801

== ENCOUNTER → 2020-11-02 08:57 | Outpatient (CLI) | payer MEDICAID, SELFPAY ==
[2020-11-05 20:24] LABS: Neisseria gonorrhoeae, NAA Negative (Negative)
== END ==
PROVIDERS: Visit Provider Obstetrics & Gynecology
DX: Z34.90 Encounter for supervision of normal pregnancy, unspecified, unspecified trimester (principal)
CPT/HCPCS: 87491; 87591

== ENCOUNTER → 2020-11-05 11:35 | Outpatient (CLI) | payer MEDICAID, SELFPAY ==
[2020-11-05 12:07] LABS: Basophils % 0.3 % (0.1-2.0); Eosinophils # 0.1 K/mm3 (0.0-0.4); Hematocrit 37.3 % (37.0-47.0); Hemoglobin 12.3 g/dL (12.2-16.2); Lymphocytes # 2.9 K/mm3 (0.7-4.5); Lymphocytes % 29.4 % (10-50); Mean Corpuscular Hemoglobin 30.2 pg (27.0-31.2); Mean Corpuscular Volume 91.6 fl (81-99); Mean Platelet Volume 7.2 fl (7.4-10.4); Monocytes # 0.6 K/mm3 (0.1-1.0); Monocytes % 5.7 % (1.7-9.3); Neutrophils # 6.2 K/mm3 (1.8-7.8); Neutrophils % 63.6 % (37.0-80.0); Platelet Count 315 K/mm3 (142-424); Red Blood Count 4.07 M/mm3 (4.20-5.40); Red Cell Distribution Width 12.3 % (11.5-17.5); White Blood Count 9.7 K/mm3 (4.8-10.8)
[2020-11-06 13:09] LABS: HIV Screen 4th Generation wRfx Non Reactive (Non Reactive); Hepatitis B Surface Antigen Negative (Negative); Hepatitis C Antibody <0.1 s/co ratio (0.0-0.9); Rapid Plasma Reagin Ab Titer Non Reactive (NonRea<1:1); Rubella Antibodies, IgG 1.27 index (Immune >0.99)
== END ==
PROVIDERS: Visit Provider Obstetrics & Gynecology
DX: Z34.90 Encounter for supervision of normal pregnancy, unspecified, unspecified trimester (principal)
CPT/HCPCS: 36415; 85025; 86592; 86703; 86762; 86850; 87340; 87380; G0432

== ENCOUNTER → 2021-01-24 14:33 | Outpatient (CLI) | payer MEDICAID, SELFPAY ==
--- NOTE | 2021-01-24 14:33 | US_ITS ---
PROCEDURE: US OB >= 14 WEEKS FETUS CLINICAL INDICATION: OB complete COMPARISON: US US OB <= 14 WEEKS FETUS from 10/29/2020 FINDINGS: There is a single live fetus present in cephalic presentation. heart and body motion noted. The placenta is anterior and grade 1. Complete survey performed and was unremarkable on the submitted images as in PACS. No discrete anomalies identified on survey imaging by technologist. Active fetus. Three-vessel cord with satisfactory umbilical cord insertion. 4- chamber heart noted. Survey of brain & ventricles Unremarkable. Face and neck survey unremarkable. Diaphragm and chest views unremarkable. Abdomen: Both kidneys noted and unremarkable. Stomach noted and satisfactory. Spine: Survey of the spine satisfactory with no anomalies identified nor imaged. Both arms and legs noted. Amniotic Fluid: Adequate. Maternal adnexa: No significant findings. Measurements: Average ultrasound age 21weeks. Gestational Age 21weeks Estimated due date by ultrasound age 1206/06/2021. Estimated weight 403g BPD = 20weeks 6days OFD = 20weeks 4days HC = 20weeks AC = 21weeks 3days FL = 21weeks 2days Growth Percentile= 43Percent% Heart Rate = 152bpm Cerebellum = 21weeks 1day Humerus = 21weeks 4days HC/AC is 1.06 CI is 0.81 FL/BPD is 0.73 FL/AC is 0.22 IMPRESSION: Live IUP in cephalic presentation with an average ultrasound age of 21 weeks 0 days. No obvious anomalies. Please see above for detail. Dictated by: Bill Miguel MD 01/24/2021 17:23 Bill Miguel MD in [place] 01/24/2021 17:23
== END ==
PROVIDERS: PCP Physician Assistant; Visit Provider Obstetrics & Gynecology
DX: Z34.90 Encounter for supervision of normal pregnancy, unspecified, unspecified trimester (principal)
CPT/HCPCS: 76805

== ENCOUNTER → 2021-02-26 07:14 | Outpatient (CLI) | payer MEDICAID, SELFPAY ==
[2021-02-26 07:31] LABS: Basophils % 0.3 % (0.1-2.0); Eosinophils # 0.2 K/mm3 (0.0-0.4); Eosinophils % 1.6 % (0.1-12.0); Hematocrit 38.4 % (37.0-47.0); Hemoglobin 12.6 g/dL (12.2-16.2); Lymphocytes # 2.7 K/mm3 (0.7-4.5); Lymphocytes % 19.3 % (10-50); Mean Corpuscular HGB Conc 32.8 g/dL (31.8-35.4); Mean Corpuscular Hemoglobin 32.1 pg (27.0-31.2); Mean Corpuscular Volume 97.8 fl (81-99); Monocytes # 0.6 K/mm3 (0.1-1.0); Monocytes % 4.4 % (1.7-9.3); Neutrophils # 10.4 K/mm3 (1.8-7.8); Neutrophils % 74.5 % (37.0-80.0); Platelet Count 367 K/mm3 (142-424); Red Blood Count 3.92 M/mm3 (4.20-5.40); Red Cell Distribution Width 12.4 % (11.5-17.5)
[2021-02-26 07:47] LABS: Glucose,Fasting 93 mg/dl (74-100)
[2021-02-26 11:38] LABS: Glucose 1 Hour 110 mg/dL (74-100)
== END ==
PROVIDERS: Visit Provider Obstetrics & Gynecology
DX: Z34.90 Encounter for supervision of normal pregnancy, unspecified, unspecified trimester (principal)
CPT/HCPCS: 36415; 82951; 85025

== ENCOUNTER → 2021-04-22 08:52 | Outpatient (CLI) | payer MEDICAID, SELFPAY ==
--- NOTE | 2021-04-22 08:52 | US_ITS ---
PROCEDURE: US OB FOLLOW UP CLINICAL INDICATION: growth and RON FINDINGS: The following parameters are obtained: Single live fetus is present in cephalic presentation. The cervix is closed measuring 4 cm in length. The placenta is anterior and grade 1. Average ultrasound age is Average 33weeks 3days Estimated due date by ultrasound is 06/07/2021. Estimated weight is 2,192g. This is 41 percentile. BPD: 33weeks 1day OFD: 33 weeks 3 days HC: 33weeks AC: 33weeks 5days FL: 33weeks 4days heart rate: 152bpm bpm. HC/AC: 1.01 Cephalic index: 0.78 FL/BPD: 0.79 FL/AC: 0.22 Amniotic fluid index: 19.03cm The femur length is 33weeks 4days IMPRESSION: There is a single live fetus present in cephalic presentation. Average ultrasound age 33 weeks 3 days with an estimated weight 2192 g which is 41 percentile. Normal RON of 19 cm Dictated by: Bill Miguel MD 04/25/2021 07:09 Bill Miguel MD in [place] 04/25/2021 07:09
== END ==
PROVIDERS: PCP Physician Assistant; Visit Provider Obstetrics & Gynecology
DX: O36.60X0 Maternal care for excessive fetal growth, unspecified trimester, not applicable or unspecified (principal)
CPT/HCPCS: 76816

== ENCOUNTER → 2021-05-10 18:05 | Outpatient (CLI) | payer MEDICAID, SELFPAY | PROVIDERS: Visit Provider Obstetrics & Gynecology | DX: Z34.90 Encounter for supervision of normal pregnancy, unspecified, unspecified trimester (principal) | CPT/HCPCS: 86403 ==

== ENCOUNTER → 2021-05-24 16:13 | Outpatient (CLI) | payer MEDICAID, SELFPAY ==
[2021-05-24 16:51] LABS: Basophils # 0.1 K/mm3 (0-0.2); Basophils % 0.4 % (0.1-2.0); Eosinophils # 0.2 K/mm3 (0.0-0.4); Eosinophils % 1.5 % (0.1-12.0); Hematocrit 35.1 % (37.0-47.0); Hemoglobin 11.8 g/dL (12.2-16.2); Lymphocytes # 2.5 K/mm3 (0.7-4.5); Lymphocytes % 17.8 % (10-50); Mean Corpuscular HGB Conc 33.6 g/dL (31.8-35.4); Mean Corpuscular Hemoglobin 30.6 pg (27.0-31.2); Mean Corpuscular Volume 91.2 fl (81-99); Mean Platelet Volume 7.7 fl (7.4-10.4); Monocytes # 0.8 K/mm3 (0.1-1.0); Monocytes % 5.9 % (1.7-9.3); Neutrophils # 10.5 K/mm3 (1.8-7.8); Neutrophils % 74.5 % (37.0-80.0); Platelet Count 366 K/mm3 (142-424); Red Blood Count 3.85 M/mm3 (4.20-5.40); Red Cell Distribution Width 12.4 % (11.5-17.5); White Blood Count 14.1 K/mm3 (4.8-10.8)
[2021-05-24 18:22] LABS: Alanine Aminotransferase 15 U/L (12-78); Albumin Level 3.5 g/dl (3.5-5.0); Albumin/Globulin Ratio 1.1 (1.1-1.8); Alkaline Phosphatase 156 U/L (38-126); Aspartate Amino Transferase 25 U/L (14-36); Bilirubin,Total 0.2 mg/dl (0.2-1.3); Blood Urea Nitrogen 12 mg/dl (7-17); Calcium 9.4 mg/dl (8.4-10.2); Carbon Dioxide 23 mmol/L (22.0-30.0); Chloride 104 mmol/L (98-107); Estimated Glomerular Filt Rate 116 ml/min (>60); GFR (African American) 140 ML/MIN (>60); Globulin 3.1 g/dL (1.3-3.2); Glucose 80 mg/dl (74-100); Sodium 134 mmol/L (136-145); Total Protein,Serum 6.6 g/dl (6.3-8.2)
== END ==
PROVIDERS: Visit Provider Obstetrics & Gynecology
DX: Z34.90 Encounter for supervision of normal pregnancy, unspecified, unspecified trimester (principal)
CPT/HCPCS: 36415; 80053; 85025; 86850; C9803; U0003; U0005

== ENCOUNTER 2021-05-26 06:04 | Inpatient (IN) | payer MEDICAID, SELFPAY ==
[2021-05-26] VITALS (18 sets, daily range): BP systolic 103–130; BP diastolic 52–82; PULSE 67–100; RESP 18–22; TEMP 36.1–36.7; O2SAT 96–100; BMI 28.8
[2021-05-26 06:25] LABS: Coronavirus 19, PCR Not Detected (NotDetected); Influenza A, PCR Not Detected (NotDetected); Influenza B, PCR Not Detected (NotDetected); Microscopic, Urine URINE MICROSCOPIC (MICROSCOPIC)
[2021-05-26 06:35] LABS: Appearance,Urine CLEAR (Clear); Bilirubin,Urine Negative (Negative); Blood, Urine Negative (Negative); Color,Urine YELLOW (Yellow); Glucose,Urine (UA) Negative (Negative); Ketones,Urine Negative (Negative); Leukocyte Esterase,Urine 2+ (Negative); Nitrate,Urine Negative (Negative); Protein,Urine Negative (Negative); Urobilinogen,Urine 0.2 EU/dl (0.2)
[2021-05-26 06:45] LABS: Amphetamine/Metha Screen,Urine Negative ng/ml (<1000); Benzodiazepines Screen,Urine Negative ng/ml (<200)
[2021-05-26 06:46] LABS: Barbiturates Screen,Urine Negative ng/ml (<200)
[2021-05-26 06:47] LABS: Cannabinoid Screen,Urine Negative ng/ml (<50); Cocaine Screen,Urine Negative ng/ml (<300)
[2021-05-26 06:48] LABS: Methadone Screen,Urine Negative ng/ml (<300)
[2021-05-26 06:49] LABS: Opiate Screen,Urine Negative ng/ml (<300); Phencyclidine Screen,Urine Negative ng/ml (<25)
[2021-05-26 06:54] LABS: Bacteria,Urine 1+ /lpf; RBC,Urine Occasional #/hpf (0-3)
--- NOTE | 2021-05-26 07:20 | P.PN_ITS ---
[facility] Anesthesia Checklist - Patient Identification Patient Identification: Arm Band - Structural Data Admitted From: Home Planned Operative Procedure/s: C/Section Consent for Planned Operative Procedure(s) Verified: Yes - NPO Status Verified Time NPO: 00:00 - Airway Assessment C-Spine Mobility Assessed: Yes TMJ Mobility Assessed: Yes Dentition: Good Dentition - Neurological Assessment Level of Consciousness: Awake Hx Seizures: No Numbness or tingling in extremities: No - Anesthesia Plan Anesthesia Risk discussed: Yes Anesthesia Plan: Verified ASA Class: I Anesthesia Type: Spinal [facility] History I have reviewed the patient's past medical history: Yes Medical History: Reports:: Migraine *Have you ever received a pneumonia vaccine?: No *Have you received a flu vaccine this season?: No Other Medical History: Reports: Other Anesthesia experience/problems:: None Other Surgeries: Yes: , EGD, Other Amputation: No Fractures: No - *Social History Smoking Status: Never smoker Alcohol Intake: current Alcohol Intake Frequency:: holidays/special occasions only Substance Use Type: denies use *Occupational Status:: employed Housing: house Household Members: family *Travel in the last 8 weeks: None Family Hx:: Diabetes, Cancer 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
--- NOTE | 2021-05-26 07:39 | HMH.HP ---
*Admission Date: 05/26/21 *Chief complaint: scheduled c section *History of present illness: 30 yo @ 38 2 admitted for scheduled repeat c section and tubal ligation Mild oligohydramnios noted on ultrasound in office this week, and delivery moved from 39 weeks to 38 weeks Previous c section and declines [facility] History I have reviewed the patient's past medical history: Yes Medical History: Reports:: Migraine Denies:: Seizures *Have you ever received a pneumonia vaccine?: No *Have you received a flu vaccine this season?: No Other Medical History: Reports: Other Anesthesia experience/problems:: None Other Surgeries: Yes: , EGD, Other Amputation: No Fractures: No - *Social History Smoking Status: Never smoker Alcohol Intake: current Alcohol Intake Frequency:: holidays/special occasions only Substance Use Type: denies use *Occupational Status:: employed Housing: house Household Members: family *Travel in the last 8 weeks: None Family Hx:: Diabetes, Cancer 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: 2 Review of Systems - Review of Systems Review of systems:: pertinent systems reviewed and negative unless documented below - *Genitourinary Denies abnormal vaginal bleeding Meds Home Medications Medication Instructions Recorded Confirmed Type vit no.133-ferrous 1 tab PO DAILY 11/02/20 05/26/21 History fumarate 28 mg-folic acid 800 mcg tablet Allergies Allergy/AdvReac Type Severity Reaction Status Date / Time apple Allergy Intermediate vomiting Verified 05/23/21 10:17 raspberry Allergy Intermediate swelling Verified 05/23/21 10:17 of tongue lips and throat Penicillins Allergy Unknown Rash Verified 05/23/21 10:17 Exam Vital signs and Labs for Last 24 Hours: Temp Pulse Resp BP Pulse Ox 98.1 F 71 18 125/65 97 05/26/21 06:25 05/26/21 06:25 05/26/21 06:25 05/26/21 06:25 05/26/21 06:25 Laboratory Results - last 24 hr 05/26/21 05:50: Urine Color Yellow, Urine Appearance Clear, Urine pH 7.0, Ur Specific [place] 1.020, Urine Protein Negative, Urine Glucose (UA) Negative, Urine Ketones Negative, Urine Blood Negative, Urine Nitrate Negative, Urine Bilirubin Negative, Urine Urobilinogen 0.2, Ur Leukocyte Esterase 2+ A, Urine RBC Occasional, Urine WBC 10-20, Ur Squamous Epith Cells 3-5, Urine Bacteria 1+ 05/26/21 05:50: Urine Opiates Screen Negative, Urine Methadone Screen Negative, Ur Barbituates Screen Negative, Ur Phencyclidine Scrn Negative, Ur Amphetamines Screen Negative, U Benzodiazepines Scrn Negative, Urine Cocaine Screen Negative, U Marijuana (THC) Screen Negative 05/26/21 05:50: SARS-CoV-2 (PCR) Not detected, Influenza A Untype (PCR) Not detected, Influenza Type B (PCR) Not detected I & O for Last 24 hours: Intake & Output 05/23/21 05/24/21 05/25/21 05/26/21 11:59 11:59 11:59 11:59 Weight 163 lb - Constitutional no acute distress - *Routine HEENT Exam Head: Present: normocephalic Eye: Present: EOMI ENT: Present: mucous membranes moist - *Routine Neck Exam Present: supple. Absent: lymphadenopathy - *Routine Respiratory Exam Present: CTA bilaterally - *Routine Cardiovascular Exam Present: RRR - *Routine Abdominal Exam Present: soft, normoactive bowel sounds. Absent: tenderness - *Routine Rectal Exam Rectal:: deferred - *Routine Genitalia Exam Genitalia:: normal female - *Routine Extremities Exam Absent: cyanosis, clubbing, edema - *Routine Skin Exam Present: warm. Absent: rash - *Routine Neurological Exam Present: alert, oriented X3 Assessment and Plan (1) 38 weeks gestation of Status: Acute Category: Medical Code(s): Z3A.38 - 38 weeks gestation of (2) Oligohydramnios Status: Acute Category: Medical Code(s): O41.00X0 - Oligohydramnios, unspecified trimester, not applicable or unspecified (3) Previous section Status: Acute Category: Surgical C
--- NOTE | 2021-05-26 09:07 | P.PN_ITS ---
[facility] Anesthesia Record Part I Intake, IV Amount: 1,500 Estimated blood loss (mL): 800 Urine output (mL): 350 Blood Pressure: 130/54 SaO2: 99 Pulse Rate: 74 Respiratory Rate: 18 Temperature: 97 F Patient is:: Awake Stable to PACU at:: 09:04
--- NOTE | 2021-05-26 09:53 | HMH.PHAVTE ---
[facility] Pharmacy VTE Monitoring - Patient Demographics Admission date: 05/26/21 Report Date: 05/26/21 Time: 09:53 Allergies/Adverse Reactions: Patient Allergies apple Allergy (Intermediate, Verified 05/23/21 10:17) vomiting raspberry Allergy (Intermediate, Verified 05/23/21 10:17) swelling of tongue lips and throat Penicillins Allergy (Unknown, Verified 05/23/21 10:17) Rash Height: 1.6 m Weight: 73.936 kg Patient Problems: Current Active Problems Oligohydramnios (Acute) 38 weeks gestation of (Acute) tubal ligation planned (Acute) Previous section (Acute) - VTE Risk Clinical Trial Participant: No - Prophylaxis VTE Prophylaxis Ordered?: Yes Types of VTE Prophylaxis: IPCS Knee High (POST OP)
--- NOTE | 2021-05-26 09:55 | PC.NURSE ---
0941-detailed report called to SYLVESTER Bravo 0944-pt transported to OB room 277 via hospital bed w/michelle rails up per Sylvester Vanegas and SYLVESTER Stout, pt left in care of SYLVESTER Bravo with bed locked in lowest position, family at bedside, vss, pt stable
[2021-05-26 12:43] LABS: Microscopic,Cath URINE MICROSCOPIC (MICROSCOPIC)
--- NOTE | 2021-05-26 12:56 | P.OP_ITS ---
Date of procedure: 05/26/21 Pre-op Diagnosis:: 1. 38 2/ 2. Previous c section 3. Oligohydramnios 4. Undesired fertility Post-op Diagnosis:: same Procedure performed:: 1. Low Transverse C Section 2. Bilateral salpingectomy Surgeon:: Kelli Woodard MD Medical Lab Assistant(s):: Gabriela Duenas FORTUNE COOKIE MAKER:: Rin Johnson Anesthesia: GETA Estimated blood loss (mL): 800 Operative findings:: vigorous female , vertex presentation grossly normal uterus, fallopian tubes and ovaries Operative note:: The patient was taken to the OR and spinal was administered without difficulty. She was prepped and draped in normal sterile fashion. A pfannenstiel skin incision was made with the scalpel and carried down to the fascia. The fascia was incised in the midline and sharply dissected off the rectus muscles. The muscles were in the midline and the peritoneum was entered sharply and extended bluntly. The Vignesh-O self retaining retractor was placed in the abdomen and a bladder flap was created. The uterus was incised in the lower uterine segment in a transverse fashion and extended bluntly. Amniotomy was performed and clear fluid noted. The infant was delivered in controlled fashion, without complication or shoulder dystocia. The infant was vigorous at and handed to awaiting naphthalene operator helper for evaluation after cord clamped and cut. Cord blood was collected and a cord segment was preserved. The placenta was manually extracted and noted to be intact. The uterus was repaired with 0- vicryl in a running/locked fashion. Both fallopian tubes were excised using the Enseal. The peritoneum was closed with 2-0 vicryl in a running fashion. The fascia was closed with #1 vicryl in a running fashion. The subcutaneous fat was closed with 2-0 vicryl in an interrupted fashion. The skin was closed with 2-0 stratafix in a subcuticular fashion. The patient tolerated the procedure well. Sponge, lap, needle and instrument counts were correct x 2. She was taken to PACU awake and in stable condition. Condition: stable Disposition: PACU Specimens:: placenta, fallopian tubes Complications:: none
[2021-05-26 13:12] LABS: Appearance,Urine/Cath CLEAR (Clear); Bilirubin,Cath Negative (Negative); Blood, Urine/Cath Negative (Negative); Color,Urine/Cath YELLOW (Yellow); Glucose,Urine/Cath (UA) Negative (Negative); Ketones,Urine/Cath Negative (Negative); Leukocyte Esterase,Cath Negative (Negative); Nitrate,Cath Negative (Negative); PH,Urine/Cath 7.5 (5.0-8.5); Protein,Urine/Cath Negative (Negative); Urobilinogen,Cath 0.2 EU/dl (0.2)
[2021-05-26 13:19] LABS: RBC,Urine/Cath Occasional # /hpf (0-3); Squamous Epithelial Ur./Cath Occasional #/hpf (0-5); WBC,Urine/Cath Occasional #/hpf (0-3)
[2021-05-27 04:00] VITALS: BP 111/70; PULSE 78; RESP 17; TEMP 36.8; O2SAT 98
[2021-05-27 07:28] LABS: Hematocrit 27.1 % (37.0-47.0); Hemoglobin 8.9 g/dL (12.2-16.2)
--- NOTE | 2021-05-27 12:41 | P.PN_ITS ---
Internal Medicine - PN: Subj *Date: 05/27/21 *Time: 12:41 Interval history: POD #1 repeat LTCS, bilateral salpingectomy no unusual complaints Ambulating and voiding without difficulty tolerating regular diet asymptomatic with [id number] anemia lochia appropriate Exam Vital signs and Labs for Last 24 Hours: Temp Pulse Resp BP Pulse Ox 98.2 F 78 17 111/70 98 05/27/21 04:00 05/27/21 04:00 05/27/21 04:00 05/27/21 04:00 05/27/21 04:00 Laboratory Results - last 24 hr 05/26/21 08:00: Urine Color Yellow, Urine Appearance Clear, Urine pH 7.5, Ur Specific [place] 1.010, Urine Protein Negative, Urine Glucose (UA) Negative, Urine Ketones Negative, Urine Blood Negative, Urine Nitrate Negative, Urine Bilirubin Negative, Urine Urobilinogen 0.2, Ur Leukocyte Esterase Negative, Urine RBC Occasional, Urine WBC Occasional, Ur Squamous Epith Cells Occasional, Urine Bacteria None 05/27/21 06:43: Hgb 8.9 L, Hct 27.1 L I & O for Last 24 hours: Intake & Output 05/25/21 05/26/21 05/27/21 05/28/21 11:59 11:59 11:59 11:59 Intake Total 1500 / 1500 Output Total 150 / 150 1500 / 1500 Balance 1350 / 1350 -1500 / -1500 Weight 163 lb Microbiology Reports for the Last 24 Hours: Microbiology 05/26/21 05:50 Urine,Clean Catch Urine Culture - Preliminary NO GROWTH AFTER 24 HOURS Narrative: CONSTITUTIONAL: no acute distress HEENT: mucous membranes moist PULMONARY: breathing unlabored without audible wheezes CV: no tachycardia or visible JVD; normal LE peripheral pulses ABD: soft, ND; appropriately tender but no rebound/guarding : fundus firm below umbilicus SKIN: incision well approximated with no drainage, erythema or induration EXT: 1+ edema LEs NEURO: alert/oriented, no altered mental status PSYCH: appropriate mood and demeanor Assessment and Plan (1) 38 weeks gestation of Status: Acute Category: Medical Code(s): Z3A.38 - 38 weeks gestation of (2) Oligohydramnios Status: Acute Category: Medical Code(s): O41.00X0 - Oligohydramnios, unspecified trimester, not applicable or unspecified (3) Previous section Status: Acute Category: Surgical Code(s): Z98.891 - History of uterine scar from previous surgery (4) tubal ligation planned Status: Acute Category: Medical (5) S/P tubal ligation Status: Acute Category: Surgical Code(s): Z98.51 - Tubal ligation status (6) Anemia associated with acute blood loss Status: Acute Category: Medical Code(s): D62 - Acute posthemorrhagic anemia - Assessment and plan all Dx Assessment and Plan for all problems:: Routine /postop care PNV with FeSO4 for anemia Anticipate discharge home tomorrow
[2021-05-27 16:15] VITALS: BP 108/59; PULSE 68; RESP 20; TEMP 36.4; O2SAT 100
--- NOTE | 2021-05-27 16:34 | CARE MANAGER ---
Received referral on positive screen in November for marijuana on mother. No other positive screens noted. Mother and baby negative on admission and . Mother and baby both appropriate. Will follow up with cord screen. JUANA Lara, BSN
[2021-05-27 20:06] VITALS: BP 112/58; PULSE 76; RESP 18; TEMP 36.7; O2SAT 97
[2021-05-28 04:25] VITALS: BP 113/55; PULSE 92; RESP 18; TEMP 36.8
[2021-05-28 08:45] VITALS: BP 116/58; PULSE 100; RESP 17; TEMP 36.8; O2SAT 97
--- NOTE | 2021-05-28 09:24 | P.PN_ITS ---
Internal Medicine - PN: Subj *Date: 05/28/21 *Time: 09:24 (This is and postop day #2. The patient is afebrile. Vital signs stable. Wound clean. Abdomen soft. Lochia normal. Uterine fundus involuting well. Nursing well. Hemoglobin 8.9 g, but clinically stable. Impression: Stable. Plan is for discharge today.) Exam Vital signs and Labs for Last 24 Hours: Temp Pulse Resp BP Pulse Ox 98.2 F 92 H 18 113/55 L 97 05/28/21 04:25 05/28/21 04:25 05/28/21 04:25 05/28/21 04:25 05/27/21 20:06 I & O for Last 24 hours: Intake & Output 05/25/21 05/26/21 05/27/21 05/28/21 11:59 11:59 11:59 11:59 Intake Total 1500 / 1500 Output Total 150 / 150 1500 / 1500 Balance 1350 / 1350 -1500 / -1500 Weight 163 lb Microbiology Reports for the Last 24 Hours: Microbiology 05/26/21 05:50 Urine,Clean Catch Urine Culture - Final NO GROWTH AFTER 48 HOURS Assessment and Plan (1) 38 weeks gestation of Status: Acute Category: Medical Code(s): Z3A.38 - 38 weeks gestation of p regnancy (2) Oligohydramnios Status: Acute Category: Medical Code(s): O41.00X0 - Oligohydramnios, unspec ified trimester, not applicable or unspecified (3) Previous section Status: Acute Category: Surgical Code(s): Z98.891 - History of uterine scar from previous surgery (4) tubal ligation planned Status: Acute Category: Medical (5) S/P tubal ligation Status: Acute Category: Surgical Code(s): Z98.51 - Tubal ligation status (6) Anemia associated with acute blood loss Status: Acute Category: Medical Code(s): D62 - Acute posthemorrhagic anemia
--- NOTE | 2021-05-28 09:26 | HMH.DCSUM ---
General - General Admission date:: 05/26/21 Discharge date: 05/28/21 (This 30-year-old 4, now para 3, AB 1 white female was admitted at 38 weeks of gestation because of oligohydramnios. On the date of admission, she was taken to the operating room, where she underwent a repeat low transverse cervical section and bilateral tubal sterilization procedure, without complications. The baby was an 9/10, 7 pound 5 ounce, 19 inch female , who is breast-feeding and is done well. , the patient has done well. She is eating and ambulating, and has had a bowel movement. Her wound is clean. Her abdomen is soft. Her lochia is normal. Her uterine fundus has involuted well. Her hemoglobin is 8.9 g, but she is clinically stable. Her blood pressure is B+. Her rubella titer is immune. She is discharged home on the second and post op day on iron and vitamins and on Percocet 5/325 (#20), 1 p.o. every 6 hours as needed pain. She is given appropriate instructions as to diet, exercise, and wound care, and she is to return to Dr. Woodard's office as scheduled for follow-up.) HPI HPI: 30 yo @ 38 2/ admitted for scheduled repeat c section and tubal ligation Mild oligohydramnios noted on ultrasound in office this week, and delivery moved from 39 weeks to 38 weeks Previous c section and declines TOL[facility] Hospital Course Rhogam Administration: Not Indicated Objective Vital signs: Temp Pulse Resp BP Pulse Ox 98.2 F 92 H 18 113/55 L 97 05/28/21 04:25 05/28/21 04:25 05/28/21 04:25 05/28/21 04:25 05/27/21 20:06 DS: Diagnosis - Discharge Diagnosis (1) 38 weeks gestation of Status: Acute (2) Oligohydramnios Status: Acute (3) Previous section Status: Acute (4) tubal ligation planned Status: Acute (5) S/P tubal ligation Status: Acute (6) Anemia associated with acute blood loss Status: Acute Discharge Plan - Patient Discharge Instructions Patient Instructions: Depression, Hemorrhage, DI for , DI for Pre-eclampsia, Surgical Site Infection, [facility] Post Discharge Instructions, Preventing the Spread of Coronavirus Discharge Instructions - Follow up Plan Follow up with: Kelli Woodard MD [Staff Physician] - Condition at discharge:: Stable (stable) Home Medications: Home Medications Medication Instructions Recorded Confirmed Type vit no.133-ferrous 1 tab PO DAILY 11/02/20 05/26/21 History fumarate 28 mg-folic acid 800 mcg tablet Prescriptions/Medication Reconciliation: No Action vit no.133-ferrous fumarate 28 mg-folic acid 800 mcg tablet 1 tab PO DAILY - Problem Reconciliation Problems Reviewed?: Yes
[2021-05-30 12:45] VITALS: BP 112/78; PULSE 71; TEMP 36.2
--- NOTE | 2021-05-30 12:45 | HMH.ANESII ---
[facility] Anesthesia Record Part II Discharge Time: 09:44 Destination: Obstetric PACU nurse assessment reviewed?: Yes Patient Condition:: Good Anesthesia Complications:: None Swallowing reflex intact?: Yes Cyanosis?: No Blood Pressure: 112/78 Pulse Rate: 71 Temperature: 97.1 F Mental Status: Alert & Oriented Pain level:: 4 Nausea and/or vomitting:: None Intake, IV Amount: 0
== END 2021-05-28 11:40 | disposition home or self-care (01) | DRG 785 ==
LOC: OB 06:04
PROVIDERS: Admitting Provider Obstetrics & Gynecology; PCP Physician Assistant; Visit Provider Obstetrics & Gynecology
PROC: 10D00Z1 Extraction of Products of Conception, Low, Open Approach (ICD-10-PCS; CPT 59514; principal; 2021-05-26 07:30)
DX: O41.03X0 Oligohydramnios, third trimester, not applicable or unspecified (principal); O34.211 Maternal care for low transverse scar from previous cesarean delivery; N85.8 Other specified noninflammatory disorders of uterus; Z3A.38 38 weeks gestation of pregnancy; Z37.0 Single live birth; Z30.2 Encounter for sterilization
CPT/HCPCS: 59514; 58700; 36415; 59025; 80053; 80305; 81001; 85014; 85018; 85025; 86850; 87086; 88302; 94761; C9290; C9803; G0283; J2405; U0003; U0005

== ENCOUNTER → 2023-02-07 15:00 | Outpatient (CLI) | payer MEDICAID, SELFPAY ==
[2023-02-07 19:58] LABS: Basophils # 0.1 K/mm3 (0-0.2); Basophils % 0.6 % (0.1-2.0); Eosinophils # 0.1 K/mm3 (0.0-0.4); Eosinophils % 1.1 % (0.1-12.0); Hematocrit 38.8 % (37.0-47.0); Hemoglobin 12.8 g/dL (12.2-16.2); Lymphocytes % 39.1 % (10-50); Mean Corpuscular Hemoglobin 30.9 pg (27.0-31.2); Mean Corpuscular Volume 93.6 fl (81-99); Mean Platelet Volume 8.1 fl (7.4-10.4); Monocytes # 0.4 K/mm3 (0.1-1.0); Monocytes % 5.1 % (1.7-9.3); Neutrophils # 4.1 K/mm3 (1.8-7.8); Neutrophils % 54.2 % (37.0-80.0); Platelet Count 368 K/mm3 (142-424); Red Blood Count 4.15 M/mm3 (4.20-5.40); Red Cell Distribution Width 12.3 % (11.5-17.5); White Blood Count 7.6 K/mm3 (4.8-10.8)
[2023-02-07 20:46] LABS: Alanine Aminotransferase 22 U/L (12-78); Albumin Level 4.4 g/dl (3.5-5.0); Albumin/Globulin Ratio 1.6 (1.1-1.8); Alkaline Phosphatase 52 U/L (38-126); Anion Gap 16.9 mEq/L (5-15); Aspartate Amino Transferase 26 U/L (14-36); Blood Urea Nitrogen 20 mg/dl (7-17); Calcium 9.3 mg/dl (8.4-10.2); Carbon Dioxide 26 mmol/L (22.0-30.0); Chloride 103 mmol/L (98-107); Chol/HDL Ratio 1.8 (1-3.5); Cholesterol 144 mg/dl (140-200); Estimated Glomerular Filt Rate 72 ml/min (>60); GFR (African American) 87 ML/MIN (>60); Globulin 2.8 g/dL (1.3-3.2); Glucose 81 mg/dl (74-100); HDL Cholesterol 78 mg/dl (40-60); Potassium 3.9 mmoL/L (3.5-5.1); Sodium 142 mmol/L (136-145); Total Protein,Serum 7.2 g/dl (6.3-8.2); Triglycerides 106 mg/dl (30-150); VLDL Cholesterol 21 mg/dL (0-40)
[2023-02-07 20:55] LABS: Bilirubin,Total 0.1 mg/dl (0.2-1.3)
[2023-02-07 20:57] LABS: Direct LDL Cholesterol 46.15 mg/dL (100-129)
[2023-02-07 21:03] LABS: 25-OH Vitamin D, Total 33.5 ng/mL (30-100); T4 (Thyroxine) 7.2 ug/dl (5.53-11.0)
[2023-02-07 21:17] LABS: Thyroid Stimulating Hormone 5.97 uIU/mL (0.465-4.68)
== END ==
PROVIDERS: PCP Physician Assistant; Visit Provider Physician Assistant
DX: R00.0 Tachycardia, unspecified (principal); H53.9 Unspecified visual disturbance; R06.09 Other forms of dyspnea
CPT/HCPCS: 80053; 80061; 82306; 84436; 84443; 85025; 93225

== ENCOUNTER → 2023-02-07 23:29 | Outpatient (CLI) | payer MEDICAID, SELFPAY | PROVIDERS: PCP Physician Assistant; Visit Provider Physician Assistant | DX: R00.0 Tachycardia, unspecified (principal) ==

== ENCOUNTER → 2023-02-28 09:45 | Outpatient (CLI) | payer MEDICAID, SELFPAY | PROVIDERS: PCP Physician Assistant; Visit Provider Nurse Practitioner | DX: I47.1 Supraventricular tachycardia (principal); R06.00 Dyspnea, unspecified; I20.8 Other forms of angina pectoris | CPT/HCPCS: 93270 ==

== ENCOUNTER → 2023-03-02 13:39 | Outpatient (CLI) | payer MEDICAID, SELFPAY ==
--- NOTE | 2023-03-02 13:42 | CA_ITS ---
APPROVED REPORT EXAM: Comprehensive 2D, Doppler, and color-flow Echocardiogram Disintegrator Feeder: Kaylene Kulkarni, RT(R) Ht: 5 ft 4 in Wt: 119lbs BSA: 1.57 BP: 114/55 mmHg Indications: palpitations, SVT, CP, ex smoker. 2D Dimensions Aortic Root 1.99 cm F: 2.7 - 3.3 M-Mode Dimensions RVDd 2.50 cm (0.9-2.6) LA Diam 3.08 cm (1.9-4.0) LVDd 4.41 cm (3.5-5.7) Ao Diam 2.54 cm (2.0-3.7) LVDs 3.22 cm (3.5-5.7) IVSd 0.69 cm (0.6-1.1) PWd 0.72 cm (0.6-1.1) EF (Teich) 52.80% FS 27.00% EDV (Teich) 88.20 mL ESV (Teich) 41.60 mL LV Diastology E Decel Time 213.00 (160-240 msec) E/A Ratio 2.1 MED E' 10.80 (< 7 cm/sec) E'/MED E' Ratio 9.31 (>14) LAT E' 17.40 (<10 cm/sec) E/LAT E' Ratio 5.78 (>14) Mitral Valve MV E Max Manny. 101.00 (40-130 cm/s) MV A Velocity 48.00 (40-130 cm/s) E/A Ratio 2.10 MV Decel. Time 213.00 (160-240 ms) MV PHT 62.00 ms Left Ventricle The left ventricle is normal size. The left ventricular systolic function is normal. The left ventricular ejection fraction is within the normal range. There is normal left ventricular wall thickness. There is normal LV segmental wall motion. The left ventricular diastolic function is normal. LVEF is 55%. Right Ventricle The right ventricle is normal size. Atria The left atrium size is normal. The right atrium size is normal. There is no Doppler evidence of interatrial shunt. Aortic Valve The aortic valve opens well. There is no aortic valvular stenosis. No aortic regurgitation is present. Mitral Valve The mitral valve is normal in structure. No evidence of mitral valve stenosis. Trace mitral valve regurgitation. Tricuspid Valve The tricuspid valve leaflets are thin and pliable. Trace tricuspid regurgitation. There is insufficient TR jet to estimate RVSP. Pulmonic Valve The pulmonary valve is normal in structure. Trace pulmonic regurgitation. Great Vessels The aortic root is normal in size. The ascending aorta is normal in size. IVC is normal in size and collapses >50% with inspiration. Pericardium A small, anterior pericardial effusion is present. Largest pocket measures approximately 0.5 cm in end diastole. No echo indications of tamponade. Other Information Study Quality: Adequate Conclusion Normal biventricular systolic function. No significant valvular stenosis or regurgitation. Small, anterior pericardial effusion is present. Largest pocket measures approximately 0.5 cm in end diastole. No echo indications of tamponade. If persistent symptoms, a cardiac MRI may be considered to rule out myocarditis/pericarditis as an underlying etiology of the patient's symptoms and pericardial effusion. Electronically signed by : Noemy Chanel MD 03/04/2023 16:05:34
--- NOTE | 2023-03-02 15:08 | CA_ITS ---
APPROVED REPORT Exam: Exercise Treadmill Technologist: Melody Fowler, Ht: 5 ft 3 in Wt: 119 lbs BSA: 1.55 m2 HR: 58 bpm BP: 97/45 mmHg Rhythm: NSR Medical History Medications: Toprol XL,,,,, Stress Test Details Test: Jaskaran HR Resting HR: 66 bpm Max Heart Rate (APMHR): 186 bpm Max HR Achieved: 186 bpm Target HR (85% APMHR): 158 bpm % of APMHR: 100 Recovery HR: 95 bpm HR response to stress: Normal HR response to stress BP Resting BP: 102.0/54.0 mmHg Max BP: 154.0/67.0 mmHg Recovery BP: 122.0/67.0 mmHg BP response to stress: Normal blood pressure response to stress. ECG Resting ECG: NSR, rightward axis Stress EC-1.[address] depression Arrhythmia: PACs Recovery ECG: Return to baseline within 5-7 minutes of recovery Recovery Arrhythmia: None Clinical Exercise duration: 13:05 min Highest Stage Achieved: V Exercise capacity: 14.8 METs Overall Exercise Capacity for Age: Good Stress ECG Conclusion The patient was able to exercise for a total of 13 minutes, 05 seconds. She achieved a total of 14.8 METS. She has good exercise capacity compared to age and sex matched peers. She has normal HR and BP response to exercise. Max HR: 186 % of PM: 100% Max BP: 135/65 METs: 14.8 Test stopped due to: SOA, Fatigue Symptoms: SOA, No CP. Arrhythmias/Ectopy: Occasional PACs ST-T Changes: 1-1.[address] depression Conclusion: Good exercise capacity. ECG changes are equivocal for ischemia. GXT only (no imaging). As this ECG stress test was equivocal, further evaluation with alternative diagnostic modalitie (e.g. CCTA) s is recommended, if clinically indicated. Test Summary REST . . . . . . . Sitting REST 03:23 0.0 0.0 66 . 102/ 54 . . Stage 1 01:00 10.0 1.7 87 . . . . Stage 1 02:00 10.0 1.7 99 . . . . Stage 1 03:00 10.0 1.7 103 . 100/ 60 . . Stage 2 01:00 12.0 2.5 105 . . . . Stage 2 02:00 12.0 2.5 112 . . . . Stage 2 03:00 12.0 2.5 115 . 110/ 62 . . Stage 3 01:00 14.0 3.4 130 . . . . Stage 3 02:00 14.0 3.4 135 . . . . Stage 3 03:00 14.0 3.4 142 . 120/ 62 . . Stage 4 01:00 16.0 4.2 155 . . . . Stage 4 02:00 16.0 4.2 163 . . . . Stage 4 03:00 16.0 4.2 169 . . . . Stage 5 01:00 18.0 5.0 184 . . . . Stage 5 01:05 18.0 5.0 185 . . . Stop exercise at 13:05 RECOVERY 01:00 0.0 0.0 141 . . . . RECOVERY 02:00 0.0 0.0 103 . . . . RECOVERY 03:00 0.0 0.0 87 . 154/ 67 . . RECOVERY 04:00 0.0 0.0 87 . 135/ 65 . . RECOVERY 05:00 0.0 0.0 95 . 130/ 71 . . RECOVERY 05:40 0.0 0.0 88 . 122/ 67 . . Electronically signed by : Noemy Chanel MD 03/11/2023 23:10:10
== END ==
PROVIDERS: PCP Physician Assistant; Visit Provider Physician Assistant
DX: R06.00 Dyspnea, unspecified (principal); I20.8 Other forms of angina pectoris; I47.1 Supraventricular tachycardia
CPT/HCPCS: 93017; 93306

== ENCOUNTER 2023-04-23 12:00 | Outpatient (CLI) | payer MEDICAID, SELFPAY ==
--- NOTE | 2023-04-23 12:01 | CT_ITS ---
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 A noncontrast coronary calcium scan was performed. A CT attenuation threshold of 130 Hounsfield units (HU) was used for the detection of calcium in contiguous voxels of 1 sq mm in area to be counted as individual lesions. Bolus tracking in the ascending aorta with a threshold of 180 HU was performed. Immediately afterwards, ECG synchronized cardiac CT was then performed from the cardiac base to apex using retrospective gating with ECG tube current modulation. A total of 85 mL of Isovue 370 mg/mL contrast medium was administered at 5 mL/sec followed by a saline flush using a biphasic injection protocol. A tube voltage of 120 KVp was used. The patient received the following medications prior to the cardiac CT. 0.8 mg of sublingual nitroglycerin The average heart rate at the time of acquisition was 56 bpm and regular. Image Reconstruction Transaxial images were reconstructed at 0.67 mm slide thickness. Data was reviewed interactively on an advanced workstation capable of 2 and 3-dimensional displays in all conventional reconstruction formats, including multiplanar reformations, maximum intensity projections, curved multiplanar reformations, and volume rendered reconstructions. When applicable, selected routine images describing the relevant coronary anatomy and pathology were saved and sent to PACS. Complications None Technical Quality Overall image quality was good. Coronary artery opacification was adequate. Total DLP (Dose-Length Product) is 1439.5 mGy-cm. The reported value represents the total of one or more individual components during the CT acquisition of this date and at this time, and as such, the same value may appear in more than one CT report depending on the interpreting/reporting physicians. COMPARISON None FINDINGS CT Coronary Calcium Scoring LMA (Left Main Artery) = 0 LAD (Left Anterior Descending) = 0 LCX (Left Coronary Circumflex) = 0 RCA (Right Coronary Artery) = 0 Total Calcium Score = 0 using the AJ-130 method. The interpretation of the calcium heart score is based on the following continuum*: 0 = no calcified plaque detected (risk of coronary artery disease is very low ??? less than 5%) 1-10 = calcium detected in extremely minimal levels (risk of coronary diseases is still low ??? less than 10%) 11-100 = mild levels of plaque detected with certainty (mild or minimal narrowing of heart arteries is likely) 101-400 = definite,at least moderate levels of plaque detected (relatively high risk of a heart attack within 3-5 years) >401-999 = extensive levels of plaque detected (high risk of heart attack, high levels of vascular disease are present, high likelihood of at least one significant coronary narrowing) *The calcium heart score quantifies the burden of coronary calcification/plaque in the coronary arteries. The calcium heart score is not able to evaluate the presence or burden of non-calcified (i.e. soft) plaque. There is no identifiable calcification in the aortic valve, mitral annulus or mitral valve, pericardium, or myocardium. Coronary CT Angiography Coronaries have normal origin and proximal course. The coronary arterial system is right dominant. Note: Stenosis is reported as maximum percentage diameter stenosis. Quantitative Stenosis Grading: Left Main (LM): The left main originates normally from the left sinus of Valsalva. The LM bifurcates into the left anterior descending artery, ramus intermedius, and left circumflex artery. The LM is patent with no evidence of atherosclerosis. Left Anterior Descending (LAD) and Diagon[place]
[2023-04-23 12:32] VITALS: BP 100/52; PULSE 62; RESP 18; TEMP 37; O2SAT 100
[2023-04-23 12:36] VITALS: BMI 20.9
[2023-04-23 13:09] LABS: Anion Gap 11.7 mEq/L (5-15); Blood Urea Nitrogen 16 mg/dl (7-17); Calcium 8.8 mg/dl (8.4-10.2); Carbon Dioxide 25 mmol/L (22.0-30.0); Chloride 103 mmol/L (98-107); Creatinine Clearance Estimated 99 mL/min (50-200); Estimated Glomerular Filt Rate 96 ml/min (>60); GFR (African American) 116 ML/MIN (>60); Glucose 88 mg/dl (74-100); Potassium 3.7 mmoL/L (3.5-5.1); Sodium 136 mmol/L (136-145)
[2023-04-23 13:27] LABS: HCG,Quantitative < 2 mIU/ml (0-5.42)
[2023-04-23 13:35] VITALS: BP 101/55; PULSE 60; RESP 18; O2SAT 100
[2023-04-23 13:40] VITALS: BP 109/50; PULSE 62; RESP 18; O2SAT 100
[2023-04-23 13:45] VITALS: BP 89/47; PULSE 60; RESP 18; O2SAT 99
[2023-04-23 13:47] VITALS: BP 99/52; PULSE 63; RESP 18
[2023-04-23 13:52] VITALS: BP 112/71; PULSE 63; RESP 18; O2SAT 97
== END 2023-04-23 13:56 | disposition home or self-care (01) ==
PROVIDERS: PCP Physician Assistant; Visit Provider Physician Assistant
DX: R94.39 Abnormal result of other cardiovascular function study (principal); R07.9 Chest pain, unspecified
CPT/HCPCS: 75571; 75574; 80048; 84702; Q9967